=== PATIENT | female | born 1945 | race Caucasian/White ===

== ENCOUNTER 2021-01-27 06:09 | Day surgery (SDC) | payer OTHER ==
[2021-01-27] MEDS ORDERED: ATORVASTATIN CA80 MG PO (08:06)
[2021-01-27] MEDS ORDERED: IRBESARTAN75 MG PO (08:06)
[2021-01-27] MEDS ORDERED: FAMOTIDINE40 MG PO (08:07)
[2021-01-27] MEDS ORDERED: RESTORIL30 MG PO (08:07)
== END 2021-01-27 17:00 | disposition home or self-care (01) ==
LOC: CIR.AMB 06:09
PROVIDERS: ATTEND Urology
DX: N13.5 Crossing vessel and stricture of ureter without hydronephrosis (principal)

== ENCOUNTER 2022-06-13 08:50 | Outpatient (CLI) | payer OTHER ==
[~2022-06-13 08:50] MED LIST: ATORVASTATIN CA80 MG PO; FAMOTIDINE40 MG PO; IRBESARTAN75 MG PO; RESTORIL30 MG PO
== END 2022-06-13 09:04 | disposition home or self-care (01) ==
LOC: LAB 08:50
PROVIDERS: ATTEND Urology
DX: N13.4 Hydroureter (principal)